=== PATIENT | male | born 1985 | race Caucasian/White ===

== ENCOUNTER 2017-07-19 17:33 | Inpatient (IN) | payer MEDICARE, OTHER ==
[~2017-07-19] VITALS: Ht 175.3 cm; Wt 86.2 kg
[2017-07-19] MEDS ORDERED: MAALOX/HYOSCYAMINE/LIDOCAINE 45 ML BTL ONE (17:58)
[2017-07-19] MEDS ORDERED: METOCLOPRAMIDE 5 MG/ML, 2ML IVPush ONE (18:00)
[2017-07-19] MEDS ORDERED: MORPHINE SULFATE 4 MG/ML, 1ML IVPush PRN (18:00)
[2017-07-19] MEDS ORDERED: SODIUM CHLORIDE FLUSH 10ML SYR IVF ONE (18:00)
[2017-07-19 18:03] LABS: BASOPHILS # (AUTO) 0.03 x10^3/uL (0-0.1); BASOPHILS % (AUTO) 0 % (0-1); EOSINOPHILS # (AUTO) 0.05 x10^3/uL (0-0.4); EOSINOPHILS % (AUTO) 1 % (1-7); LYMPHOCYTES # (AUTO) 2.76 x10^3/uL (1-3.4); LYMPHOCYTES % (AUTO) 33 % (22-44); MD NO; MEAN CORPUSCULAR HEMOGLOBIN 31.6 pg (27.5-34.5); MEAN CORPUSCULAR HGB CONC 33.8 g/dL (33.2-36.2); MEAN CORPUSCULAR VOLUME 93.7 fL (81-97); MEAN PLATELET VOLUME 9.8 fL (7.4-10.4); MONOCYTES # (AUTO) 0.51 x10^3/uL (0.2-0.8); MONOCYTES % (AUTO) 6 % (2-9); NEUTROPHILS # (AUTO) 5.01 x10^3/uL (1.8-6.8); NEUTROPHILS % (AUTO) 60 % (42-75); PLATELET COUNT 219 x10^3/uL (130-400); RED BLOOD COUNT 5.29 x10^6/uL (4.38-5.82); RED CELL DISTRIBUTION WIDTH 13.5 % (9.4-14.8)
[2017-07-19] MEDS ORDERED: ONDA8TAB12 PO (18:04)
[2017-07-19] MEDS ORDERED: OMEP20TA62 PO (18:04)
[2017-07-19 18:12] LABS: ALANINE AMINOTRANSFERASE 22 U/L (12-78); ALBUMIN 4.4 g/dL (3.4-5.0); CALCIUM 9.5 mg/dL (8.5-10.1); CREATININE 1.06 mg/dL (0.7-1.3)
[2017-07-19] MEDS ORDERED: MORPHINE SULFATE 4 MG/ML, 1ML ONE (18:25)
[2017-07-19] MEDS ORDERED: METOCLOPRAMIDE 5 MG/ML, 2ML ONE (18:26)
[2017-07-19 18:30] LABS: MICROSCOPIC INDICATED
[2017-07-19] MEDS ORDERED: MAALOX/HYOSCYAMINE/LIDOCAINE 45 ML BTL PO ONE (18:30)
[2017-07-19 18:35] LABS: CULTURE INDICATED? NO
[2017-07-19] MEDS ORDERED: SODIUM CHLORIDE 0.9% 1,000 ML IV ONE (18:43)
[2017-07-19 19:10] LABS: ANION GAP 4 mmol/L (5-15); CHLORIDE 108 mmol/L (98-107)
[2017-07-19 19:19] LABS: ALKALINE PHOSPHATASE 52 U/L (45-117); BILIRUBIN,TOTAL 0.9 mg/dL (0.2-1.0)
[2017-07-19] MEDS ORDERED: PROMETHAZINE 25 MG/ML, 1ML IM PRN (21:30)
[2017-07-19] MEDS ORDERED: BISACODYL 10 MG SUPP PR PRN (21:30)
[2017-07-19] MEDS ORDERED: POLYETHYLENE GLYCOL 17 GM PACKET PO PRN (21:30)
[2017-07-19] MEDS ORDERED: hydrALAzine 20 MG/ML, 1ML IVPush PRN (21:30)
[2017-07-19] MEDS ORDERED: OXYcodone IR 5MG TABLET PO PRN (21:30)
[2017-07-19] MEDS ORDERED: ONDANSETRON ODT 4 MG PO PRN (21:30)
[2017-07-19] MEDS ORDERED: DOCUSATE 100 MG CAPSULE PO PRN (21:30)
[2017-07-19] MEDS ORDERED: ONDANSETRON 2MG/ML, 2ML IVPush PRN (21:30)
[2017-07-19 22:05] LABS: FREE T4 (FREE THYROXINE) 1.2 ng/dL (0.76-1.46); THYROID STIMULATING HORMONE 2.42 mIU/L (0.358-3.740)
[2017-07-19 22:11] LABS: HEMOGLOBIN A1C 5.3 % (4.2-6.3)
[2017-07-19 22:45] VITALS: BP 102/55
[2017-07-19] MEDS: PANTOPRAZOLE 40 MG IV IVPush SCH (23:41)
[2017-07-19] MEDS: SODIUM CHLORIDE 0.9% 1,000 ML IV SCH (23:42)
[2017-07-20 00:11] LABS: MICROSCOPIC AUTO
[2017-07-20 00:33] LABS: CULTURE INDICATED? NO
[2017-07-20 02:00] VITALS: BP 110/70
[2017-07-20 05:20] LABS: ALBUMIN 3.3 g/dL (3.4-5.0); ANION GAP 6 mmol/L (5-15); CALCIUM 7.8 mg/dL (8.5-10.1); CHLORIDE 113 mmol/L (98-107)
[2017-07-20 05:23] LABS: ALANINE AMINOTRANSFERASE 19 U/L (12-78); ALKALINE PHOSPHATASE 38 U/L (45-117); CHOL/HDL RATIO 2.6; CHOLESTEROL, TOTAL 107 mg/dL (140-239); CREATININE 0.98 mg/dL (0.7-1.3); HDL CHOL % 38 % (26-37); HDL CHOLESTEROL (DIRECT) 41 mg/dL (40-60); LDL CHOLESTEROL,CALCULATED 51 mg/dL (54-169); LDL/HDL RATIO 1.2 (0.5-3.0); TOTAL PROTEIN 5.9 g/dL (6.4-8.2); TRIGLYCERIDES 75 mg/dL (50-200); VLDL CHOLESTEROL 15 mg/dL (0-25)
[2017-07-20 05:26] LABS: BASOPHILS # (AUTO) 0.05 x10^3/uL (0-0.1); BASOPHILS % (AUTO) 1 % (0-1); EOSINOPHILS # (AUTO) 0.11 x10^3/uL (0-0.4); EOSINOPHILS % (AUTO) 2 % (1-7); LYMPHOCYTES # (AUTO) 2.95 x10^3/uL (1-3.4); LYMPHOCYTES % (AUTO) 44 % (22-44); MD NO; MEAN CORPUSCULAR HEMOGLOBIN 32.3 pg (27.5-34.5); MEAN CORPUSCULAR HGB CONC 33.9 g/dL (33.2-36.2); MEAN CORPUSCULAR VOLUME 95.2 fL (81-97); MEAN PLATELET VOLUME 9.9 fL (7.4-10.4); MONOCYTES # (AUTO) 0.43 x10^3/uL (0.2-0.8); MONOCYTES % (AUTO) 6 % (2-9); NEUTROPHILS % (AUTO) 48 % (42-75); PLATELET COUNT 168 x10^3/uL (130-400); RED BLOOD COUNT 4.45 x10^6/uL (4.38-5.82); RED CELL DISTRIBUTION WIDTH 13.4 % (9.4-14.8)
[2017-07-20] MEDS: SODIUM CHLORIDE 0.9% 1,000 ML IV SCH ×3 (06:03→20:40)
[2017-07-20 06:35] VITALS: BP 115/68
[2017-07-20 13:23] VITALS: BP 116/78
[2017-07-20] MEDS: morphine SULFATE 10 MG/ML, 1ML IVPush PRN ×2 (15:28→18:49)
[2017-07-20 16:12] VITALS: BP 116/78
[2017-07-20 18:36] VITALS: BP 150/84
[2017-07-20] MEDS: PANTOPRAZOLE 40 MG IV IVPush SCH (19:35)
[2017-07-21] MEDS: SODIUM CHLORIDE 0.9% 1,000 ML IV SCH (00:09)
[2017-07-21] MEDS: morphine SULFATE 10 MG/ML, 1ML IVPush PRN (00:14)
[2017-07-21 01:14] VITALS: BP 119/75
[2017-07-21 04:45] LABS: ALBUMIN 3.5 g/dL (3.4-5.0); ANION GAP 6 mmol/L (5-15); CALCIUM 8.2 mg/dL (8.5-10.1); CHLORIDE 111 mmol/L (98-107); CREATININE 1.05 mg/dL (0.7-1.3)
[2017-07-21 06:34] VITALS: BP 113/71
[2017-07-21 12:12] VITALS: BP 119/78
[2017-07-21 19:29] VITALS: BP 119/64
[2017-07-22 00:29] VITALS: BP 120/75
[2017-07-22 06:26] VITALS: BP 125/76
[2017-07-22] MEDS ORDERED: PANTOPROZOLE 40MG TABLET PO SCH (07:30)
== END 2017-07-22 10:31 | disposition home or self-care (01) | DRG 440 ==
LOC: ED 19:29 → EDIP 21:26 → 2NE 22:08 → 3NE 22:10 → DCLOUNGE 07-22 10:19
PROVIDERS: ADMIT Internal Medicine; ATTEND Internal Medicine
DX: K85.20 Alcohol induced acute pancreatitis without necrosis or infection (principal); K21.9 Gastro-esophageal reflux disease without esophagitis; Z83.3 Family history of diabetes mellitus
CPT/HCPCS: 36415; 76700; 80048; 80053; 80061; 81001; 82040; 83036; 83690; 83735; 84439; 84443; 85025; 96361; 96374; 96375; J2550; Q0162; C9113; J2270; J2765; J7030

== ENCOUNTER → 2018-02-17 | Outpatient (CLI) | payer OTHER ==
[~2018-02-17] MED LIST: OMEP20TA62 PO; OMNIPAQUE 350 MG/ML, 100ML BOTTLE ONE; ONDA8TAB12 PO
== END | disposition home or self-care (01) ==
LOC: CFH 14:31
PROVIDERS: ATTEND Physician Assistant Medical
DX: K76.0 Fatty (change of) liver, not elsewhere classified (principal); K85.90 Acute pancreatitis without necrosis or infection, unspecified
CPT/HCPCS: 74160; Q9967